=== PATIENT | female | born 1950 | race Caucasian/White ===

== ENCOUNTER 2024-07-25 06:56 | Emergency (ER) | payer MEDICARE, BC ==
[2024-07-25] MEDS: Diphtheria,Pertussis(Acell),Tetanus Vaccine 0.5 ML Syringe IM ONE (07:56)
[2024-07-25] MEDS: Lidocaine 1% 20 ML MDV INJECT ONE (07:56)
== END 2024-07-25 10:04 | disposition left against medical advice (07) ==
LOC: JD.ED 06:56
DX: S61.411A Laceration without foreign body of right hand, initial encounter (principal); Z79.899 Other long term (current) drug therapy; Z79.82 Long term (current) use of aspirin; Z79.890 Hormone replacement therapy; Z23 Encounter for immunization; W26.8XXA Contact with other sharp object(s), not elsewhere classified, initial encounter
CPT/HCPCS: 12001; 90715; 99283; J3490

== ENCOUNTER 2024-07-25 11:42 | Emergency (ER) | payer MEDICARE, BC ==
[2024-07-25] MEDS: Lidocaine 1% 10 ML MDV INJECT ONE (12:19)
== END 2024-07-25 12:46 | disposition home or self-care (01) ==
LOC: JD.ED 11:42
DX: S61.411A Laceration without foreign body of right hand, initial encounter (principal); I10 Essential (primary) hypertension; E03.9 Hypothyroidism, unspecified; Z79.82 Long term (current) use of aspirin; Z79.899 Other long term (current) drug therapy; W25.XXXA Contact with sharp glass, initial encounter; Y93.89 Activity, other specified
CPT/HCPCS: 12001; 99282; J2003